=== PATIENT | female | born 1945 | race Caucasian/White ===

== ENCOUNTER 2024-01-08 13:22 | Outpatient (REF) | payer OTHER, SELFPAY ==
--- NOTE | ~2024-01-08 | XR_ITS ---
EXAMINATION: XR LUMBOSACRAL SPINE WITH OBLIQUES CLINICAL INFORMATION: Spondylolisthesis lumbar region. COMPARISON: None available. TECHNIQUE: 4 views of the lumbar spine including AP, lateral and flexion and extension views. FINDINGS: Dextroscoliosis of the lumbar spine. Radiopaque devices characteristic of a zipper and oval 3 cm device overlying the sacrum, seen only on the AP view, likely external to the patient and correlation with clinical exam recommended for confirmation. Status post posterior fixation with bilateral rods and transpedicular screws as well as disc hardware at L3-L4-L5 levels. Hardware appears intact. Advanced degenerative changes with loss of disc space height at L4-L5 and L5-S1. Substantial anterolisthesis of approximately 1 cm of L4 on L5 with flexion and extension. XR/XR lumbar spine 4V min IMPRESSION: 1. Status post posterior fixation with bilateral rods and transpedicular screws as well as disc hardware at L3-L4-L5 levels. Hardware appears intact. 2. Advanced degenerative changes with loss of disc space height at L4-L5 and L5-S1. 3. Substantial anterolisthesis of approximately 1 cm of L4 on L5 with flexion and extension.
== END 2024-01-08 13:23 | disposition home or self-care (01) ==
LOC: HO.HOSX 13:22
PROVIDERS: PCP Pediatrics; Visit Provider Physician Assistant
DX: M43.16 Spondylolisthesis, lumbar region (principal)
CPT/HCPCS: 72110

== ENCOUNTER 2024-01-08 13:22 | Outpatient (AMB) | payer OTHER, SELFPAY ==
--- NOTE | 2024-01-08 13:29 | HO.SPINEOV ---
Intake Intake Visit Reasons: lumbar radiculopathy Intake Note: Ms. Toro is here today c/o pain shooting down legs Tours Hostess Required: No Allergies acetaminophen [From Percocet] Allergy (Mild, Unverified 07/27/20 17:36) DIZZY oxycodone [From Percocet] Allergy (Mild, Unverified 07/27/20 17:36) DIZZY Assessment & Plan Assessment & Plan (1) Spondylolisthesis, lumbar region: Code(s): M43.16 - Spondylolisthesis, lumbar region Plan Mrs Toro is a very nice 78-year-old female who is well known to us. We have done a number of spinal procedures on her including an L2-4 oblique lumbar interbody fusion in 2019, a left L4-5 hemilaminotomy in 2021 for postoperative left leg pain. We also previously did bilateral C7 foraminotomies in 2018. She generally recovered well from all these procedures, however over the last year so she has been having a significant increase in her back pain as well as anterior thigh pain going down into her knees. The pain has been so bad that when she gets up in the morning she can barely walk. At 1st it started with some relief when she would get up and move around but it has gotten to the point now where the only position she can be in without pain is supine. As soon as she gets up in the morning and starts walking around she will have severe back pain radiating down into her anterior thighs bilaterally. She has feelings weakness and fatigue with walking. She at this point barely leaves her house because of the pain and discomfort. She is very frustrated with her quality of life. She underwent an MRI at [facility] in December of 2023 showing a severe collapse of the L4-5 disc with a grade 1-2 spondylolisthesis and severe stenosis in the foramen and central canal. Just to recap her medical history, she has a history of AFib remotely, she underwent an ablation and then subsequently underwent a Watchman procedure. She had been on Xarelto but due to significant GI bleeding had to discontinue it, hence the reason for the Watchman. She has diet-controlled diabetes with an A1c in the low 6 range, stage 3 chronic kidney disease, hypertension, high cholesterol, glaucoma, psoriatic arthritis esophageal reflux, colon polyp Social history: She does not smoke, drink or use recreational drugs Medications: The patient supplied a medication list today including metoprolol, enalapril, Lipitor, Prilosec, dorzolamide, timolol, reckless watkins, trazodone, aspirin, PreserVision Allergies: Percocet gives her nausea or vomiting. Physical exam: Patient is awake alert oriented here with her today she is able to stand up out of a chair albeit slowly. Her leg strength is 5/5 but a reflexes are absent at the patella. In a vertical position standing for more than just a few seconds, she will grimace with pain as she moves her back into a vertical position which would generate radiculopathy down her legs. Imaging: The patient had an MRI done at [facility] in December of 2023 and this shows evidence of previous hardware instrumentation from L2-L4 with good positioning of instrumentation. She has developed a grade 1-2 spondylolisthesis at L4-5 with severe bilateral foraminal stenosis and severe central canal stenosis. She has some mild to moderate degeneration of the disc at L5-S1 but no significant foraminal or central canal stenosis at these levels. I compared her imaging to that done at [place] in 2019 and I can see the disc has completely collapsed. There was no spondylolisthesis at that time. Impression: 78-year-old female well known to Dr. Alex, who underwent an L2-4 oblique lumbar interbody fusion in 2019, had subsequent procedure of a left L4-5 decompression done about 2 years ago for left-sided sciatica pain, who did well from those procedures until about a year ago when she started to develop progressively worsening back pain and bilateral anterior thigh pain going into her knees. As outlined above, she is completely collapsed the disc at L4-5 with a grade 1-2 spondylolisthesis consistent with adjacent segment disease. I will review her imaging with Dr. Alex but I think she is going to need an L4-5 oblique lumbar interbody fusion with revision of her posterior instrumentation down to L4-5. I will review all the imaging with him and get back to the patient with a final plan. I will also obtain flexion-extension x-rays in the standing position to exclude that she has occult instability at any other segments. The patient has been stable from a medical standpoint and is off Xarelto so there should be no issues with clearing her for surgery. Please let us know about any other health concerns you have moving forward with surgery. Thank you for allowing us to care for your patient Total amount of time spent in this visit was 30 minutes in discussion of symptoms, lumbar MRI imaging results and subsequent plan of care Hugh Alex MD,PhD [facility] Orders: Orders XR lumbar spine 4V min Today M43.16 - Spondylolisthesis, lumbar region Coding Level of Care Code Est Pt Level 4 (03258) Diagnoses Spondylolisthesis, lumbar region M43.16
== END 2024-01-08 14:00 | disposition home or self-care (01) ==
PROVIDERS: PCP Pediatrics; Referring Provider Pediatrics; Visit Provider Physician Assistant
DX: M43.16 Spondylolisthesis, lumbar region (principal)
CPT/HCPCS: 99214

== ENCOUNTER → 2024-01-21 12:30 | Outpatient (BNV) | payer OTHER, SELFPAY | PROVIDERS: Admitting Provider Neurological Surgery; PCP Pediatrics; Visit Provider Internal Medicine Cardiovascular Disease | DX: I48.91 Unspecified atrial fibrillation (principal); Z01.810 Encounter for preprocedural cardiovascular examination | CPT/HCPCS: 93010 ==

== ENCOUNTER 2024-02-02 05:56 | Inpatient (IN) | payer OTHER, SELFPAY ==
[2024-01-21 12:01] VITALS: BP 141/71; PULSE 73; RESP 16; O2SAT 97; BMI 33.7
--- NOTE | 2024-01-21 12:24 | HO.ANESPROP2 ---
Documented by User: Chiara Celis MD 01/21/24 12:35 HPI - Anesthesia Eval Consult details Narrative: 78 yo female patient for L4-5 OLIF and revision of posterior instrumentation extending hardware to L4-5 PMFSH Active Problems Active Problems: All Active Problems (Updated 01/21/24 @ 12:23 by Chiraa Celis MD) Spondylolisthesis, lumbar region (Acute) H/o GI bleed needing admission while on anti-coagulants. Now with Watchman device placed 2021 Past Medical History Medical History Deafness in right ear Presence of Watchman left atrial appendage closure device (2021) Hx of blood transfusion reaction (~2020) Carsickness PONV (postoperative nausea and vomiting) Restless leg syndrome Presence of Watchman left atrial appendage closure device Obese Low back pain with right-sided sciatica Insomnia History of GI bleed Hx of colonic polyp Cervical radiculopathy Atrial flutter Atrial fibrillation Family History Family history of problems with anesthesia: No Surgical History Surgical History Hx of cataract surgery History of cardiac radiofrequency ablation (RFA) S/P cervical spinal fusion History of trabeculectomy H/O lumbar discectomy Hx of colonoscopy History of Problems with Anesthesia: No Social History Social History 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 If so, by whom?: No Are you DNR?: No Advance Directives: No Advance Directives Information Provided: Yes Advance Directives on File: No Recently lost weight without trying: No Nutrition Risks: No Nutritional Risk Meds Allergies Allergy/AdvReac Type Severity Reaction Status Date / Time oxycodone [From Percocet] Allergy Intermediate DIZZY, Verified 02/02/24 06:20 nausea Home Medications Medication Instructions Recorded Confirmed Last Taken Type aspirin 81 mg tablet,delayed 81 mg PO DAILY 01/08/24 01/20/24 01/30/24 History release atorvastatin 20 mg tablet (Lipitor) 20 mg PO BEDTIME 01/08/24 01/20/24 Unknown History enalapril maleate 5 mg tablet 5 mg PO DAILY 01/08/24 01/20/24 Unknown History metoprolol succinate 50 mg 50 mg PO DAILY 01/08/24 01/20/24 02/02/24 04:30 History tablet,extended release 24 hr trazodone 50 mg tablet 50 mg PO BEDTIME 01/08/24 01/20/24 Unknown History dorzolamide 22.3 mg-timolol 6.8 1 drp ophthalmic (eye) BID 01/20/24 01/20/24 Unknown History mg/mL eye drops netarsudil 0.02 %-latanoprost 1 drp ophthalmic (eye) QPM 01/20/24 01/20/24 Unknown History 0.005 % eye drops ([facility]) vit C 250 mg-vit E 90 mg-zinc 40 1 tab PO BID 01/20/24 01/20/24 Unknown History mg-copper 1 [id number] capsule (PreserVision AREDS-2) omeprazole 40 mg capsule,delayed 40 mg PO DAILY 01/21/24 01/21/24 Unknown History release Exam Height,Weight and Vital Signs: Height 5 ft 2 in Weight 83.461 kg Last Vital Signs Pulse 73 01/21/24 12:01 Resp 16 01/21/24 12:01 BP 141/71 H 01/21/24 12:01 Pulse Ox 97 01/21/24 12:01 O2 Del Method Room Air 01/21/24 12:01 Airway Mallampati Class: II TM Dist: >3cm Neck ROM: Full Denture: Upper Loose/Missing/Broken Teeth: Yes (Full dentures top. Own teeth bottom. Denies broken or loose teeth) Heart: RRR Lungs: CTAB Assessment and Plan Assessment Anesthesia Assessment: Anesthesia Plan Discussed, PAT Visit and Chart Reviewed Final Anesthetic Review Family History of Problems with Anesthesia: No History of Problems with Anesthesia: No ASA Class: III Final Preanesthetic Review: No Changes in Pt Med Stat, Meds/Allgs Chart Reviewed, Consent Obtained/Reviewed and Anes Risks/Benef Reviewed Patient Risk: Intermediate Procedure Risk: Intermediate Assessment/Block/Sedation in SS: Assess/Block/Sedation-SS Anesthetic Plan Anesthetic Plan: GA Disposition: Standard PACU Documented by User: Pauline Skelton NP 01/29/24 14:14 PMFSH Past Medical History Medical History Deafness in right ear Presence of Watchman left atrial appendage closure device (2021) Hx of blood transfusion reaction (~2020) Carsickness PONV (postoperative nausea and vomiting) Restless leg syndrome Presence of Watchman left atrial appendage closure device Obese Low back pain with right-sided sciatica Insomnia History of GI bleed Hx of colonic polyp Cervical radiculopathy Atrial flutter Atrial fibrillation Surgical History Surgical History Hx of cataract surgery History of cardiac radiofrequency ablation (RFA) S/P cervical spinal fusion History of trabeculectomy H/O lumbar discectomy Hx of colonoscopy Social History Social History 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 If so, by whom?: No Are you DNR?: No Advance Directives: No Advance Directives Information Provided: Yes Advance Directives on File: No Recently lost weight without trying: No Nutrition Risks: No Nutritional Risk Meds Allergies Allergy/AdvReac Type Severity Reaction Status Date / Time oxycodone [From Percocet] Allergy Intermediate DIZZY, Verified 02/02/24 06:20 nausea Home Medications Medication Instructions Recorded Confirmed Last Taken Type aspirin 81 mg tablet,delayed 81 mg PO DAILY 01/08/24 01/20/24 01/30/24 History release atorvastatin 20 mg tablet (Lipitor) 20 mg PO BEDTIME 01/08/24 01/20/24 Unknown History enalapril maleate 5 mg tablet 5 mg PO DAILY 01/08/24 01/20/24 Unknown History metoprolol succinate 50 mg 50 mg PO DAILY 01/08/24 01/20/24 02/02/24 04:30 History tablet,extended release 24 hr trazodone 50 mg tablet 50 mg PO BEDTIME 01/08/24 01/20/24 Unknown History dorzolamide 22.3 mg-timolol 6.8 1 drp ophthalmic (eye) BID 01/20/24 01/20/24 Unknown History mg/mL eye drops netarsudil 0.02 %-latanoprost 1 drp ophthalmic (eye) QPM 01/20/24 01/20/24 Unknown History 0.005 % eye drops ([facility]) vit C 250 mg-vit E 90 mg-zinc 40 1 tab PO BID 01/20/24 01/20/24 Unknown History mg-copper 1 [id number] capsule (PreserVision AREDS-2) omeprazole 40 mg capsule,delayed 40 mg PO DAILY 01/21/24 01/21/24 Unknown History release Exam Pertinent Lab Results Pertinent Lab Results: Lab Results 01/21/24 01/21/24 Range/Units 12:45 12:55 WBC 7.1 (4.8-10.8) X10*3/uL RBC 4.21 (4.20-5.50) X10*6/uL Hgb 12.7 (12.0-16.0) g/dl Hct 38.7 (37.0-47.0) % MCV 91.9 (80.0-98.0) fL MCH 30.2 (27.0-33.0) pg MCHC 32.8 (31.0-35.0) g/dl RDW 12.9 (11.0-16.0) % Plt Count 233 (160-400) X10*3/uL MPV 10.1 (9.4-12.3) fL Absolute Nucleated RBC 0.000 (0.0-0.012) X10*3/uL Nucleated RBC % (auto) 0.0 (0.0-0.2) /100WBC Blood Type O Positive Antibody Screen NEGATIVE Narrative Narrative: EKG 01/2024 Vent. Rate : 078 BPM Atrial Rate : 078 BPM P-R Int : 170 ms QRS Dur : 086 ms QT Int : 384 ms P-R-T Axes : 072 047 035 degrees QTc Int : 437 ms Normal sinus rhythm Normal ECG No previous ECGs available
--- NOTE | 2024-01-21 12:30 | ECG_ITS ---
Test Reason : PREOP Blood Pressure : / mmHG Vent. Rate : 078 BPM Atrial Rate : 078 BPM P-R Int : 170 ms QRS Dur : 086 ms QT Int : 384 ms P-R-T Axes : 072 047 035 degrees QTc Int : 437 ms Normal sinus rhythm Normal ECG No previous ECGs available Referred By: Chiara Celis Electronically Signed By:MARCIE OLIVA MD
[2024-01-21 14:03] LABS: Hematocrit 38.7 % (37.0-47.0); Hemoglobin 12.7 g/dl (12.0-16.0); Mean Corpuscular HGB Conc 32.8 g/dl (31.0-35.0); Mean Corpuscular Hemoglobin 30.2 pg (27.0-33.0); Mean Corpuscular Volume 91.9 fL (80.0-98.0); Mean Platelet Volume 10.1 fL (9.4-12.3); Platelet Count 233 X10*3/uL (160-400); Red Blood Count 4.21 X10*6/uL (4.20-5.50); Red Cell Distribution Width 12.9 % (11.0-16.0); White Blood Count 7.1 X10*3/uL (4.8-10.8)
[2024-02-02] VITALS (22 sets, daily range): BP systolic 109–143; BP diastolic 50–87; PULSE 55–73; RESP 12–18; TEMP 36.2–36.6; O2SAT 97–100; BMI 34.1
--- NOTE | ~2024-02-02 | FL_ITS ---
EXAMINATION: XR FLUOROSCOPY WITH IMAGES CLINICAL INFORMATION: Fluoroscopy provided for procedure for L4-L5 oblique lumbar interbody fusion supervised by Dr. Esau Alex. COMPARISON: Lumbar spine radiographs of 01/08/2024. TECHNIQUE: Fluoroscopy Supervised By: Dr. Esau Alex Fluoroscopy Time: 1 minute 49 seconds. Cumulative Dose: 66.702 mGy. DAP: 23.424 Gycm2. Images: 4. FINDINGS: Fluoroscopic imaging provided for procedure supervised by Dr. Esau Alex. Lumbar rods and transpedicular screws with disc spacers partially imaged. Please refer to operative report for more detailed evaluation. FL/FL guidance in OR IMPRESSION: Fluoroscopic imaging provided for procedure performed. Please refer to operative report for more detailed evaluation.
[2024-02-02] MEDS: Gabapentin 300 MG CAPSULE PO (06:26)
[2024-02-02] MEDS: Scopolamine 1.5 MG PATCH.TD.3 TRANSDERMA (06:26)
[2024-02-02] MEDS: methocarbamoL 750 MG TABLET PO (06:26)
[2024-02-02] MEDS: Lactated Ringers 1,000 ML 100 ML IVCONT (06:41)
--- NOTE | 2024-02-02 07:01 | MHC.SHP ---
Pre-Procedural Eval Section A - 24 Hr Update-Section A only Date of Service: 02/02/24 The patient is an INPATIENT: No Changes since office visit: No Cold of Flu in the past 2 weeks, No New Medical Problems, No Changes in Medication and No Patient answered all questions The patient has been examined within 24 hours of the surgical procedure. The History & Physical has been completed within 30 days and I have reviewed it.: No Section B - Complete if H&P > 30 days Chief Complaint: L4-5 OLIF Allergies: Allergies Allergy/AdvReac Type Severity Reaction Status Date / Time oxycodone [From Percocet] Allergy Intermediate DIZZY, Verified 02/02/24 06:20 nausea Review of Systems Sugical H&P ROS: Negative: Constitution, Cardiovascular, Respiratory, Neurological, Psychiatric, Hem-Onc, Allergic/Immunologic, Gastrointestinal, Genitourinary, Musculoskeletal, Integumentary, Endocrine and Eyes/Ears/Nose/Throat Exam Surgical H&P Exam: Not Evaluated: HEENT, Not Evaluated: Heart, Not Evaluated: Lungs, Not Evaluated: Extremities, Not Evaluated: Abdomen, Not Evaluated: Skin and Not Evaluated: Neurological Plan Diagnosis/Plan: Unchanged L4-5 OLIF, removal of old posterior instrumentation, placement of pedicle screws L4-5 Time Spent With Patient Time: Total time managing care of this patient today ___6_ minutes.
--- NOTE | 2024-02-02 10:24 | P.OP_ITS ---
Operative Note Operative Note Date of Service: 02/02/24 Narrative: Preop Diagnosis: 1.) L4-5 lumbar spondylolisthesis 2.) Neurogenic claudication Procedure: L4-5 discectomy, arthrodesis and implantation cage through an anterolateral, retroperitoneal approach; removal L2-L4 posterior segmental instrumentation; insertion L4-5 posterior instrumented fusion; allograft Consent Informed Consent was obtained for this operation. I have explained the nature, purpose and benefits of the operation. I have discussed the risks and benefit of the operation including possible complications or adverse events with patient/family. Alternative(s) were discussed with the patient with their relat seven benefits and risks as well as the consequences of not accepting the operation were included in obtaining consent. Surgeon: GHADA MARIE MD, PHD Procedure Assisted By: martha Cedeno Description of Procedure This 78-year-old patient had a previous L2-L4 lumbar fusion done. She presented with adjacent degenerative disc disease that caused a grade 2 L4-5 spondylolisthesis. She was offered a minimally invasive correction of the lumbar spondylolisthesis through an oblique lumbar interbody fusion L4-5 and revision and insertion of posterior instrumentation. The procedure complications were explained. The patient was consented. The patient was brought to the operating room and endotracheally intubated. The patient was turned in a lateral position with the left side up. Prep and drape was done followed by timeout. A small incision was made in the left lower abdominal quadrant. The muscle fascia was opened after which the 3 muscle layer was split to enter the retroperitoneal space. Dilators were docked in the anterior one third of the L4-5 disc space followed by a retractor. The retractor was opened. The L4-5 disc space was exposed. An annulotomy was done after which an elevator Lim was used to release the disc material from its endplates and to perforate the contralateral side. A partial discectomy was done. An 8 mm height trial implant was inserted. The discectomy was completed. The endplates were prepared. An 8 mm x 50 mm with 0 degree lordosis 4 web cage filled with allograft was inserted into the disc space under fluoroscopic guidance. This resulted in reduction of the spondylolisthesis. The retractor was removed. Hemostasis was done. The incision was closed in 2 layers. Steri-Strips used to approximate incision. An OpSite with Tegaderm was used to cover the incision. This marked first part of the procedure. The patient was turned prone on the [place] spine table. 2C arms were installed for fluoroscopy. Prep and drape was done followed by a second timeout. 2 paramedian incisions were made lateral from the L2-L5 pedicles. The muscle fascia was opened after which the muscle layer was split bluntly to expose previous placed L2-L4 instrumentation. The locking caps were removed and the bilateral rods were taken out. The L2 and L3 pedicle screws were removed bilaterally. The L4 screws were left insitu. The following steps were then taken. A pediguard tap was used to create a transpedicular trajectory into the L5 vertebral body. A K wire was placed. A specially designed instrument was advanced over the K wire to decorticate the posterolateral L4-5 gutter in preparation for the posterolateral fusion. A 6.5 x 45 mm pedicle screw was advanced over the K wire bilaterally in the L5 pedicles followed by removal of the K wire. The L4 and L5 pedicle screws were connected with a 45 mm yarely bilaterally and locked down with locking caps. The posterolateral gutter was filled with allograft to complete the posterolateral L4-5 fusion Hemostasis was done and the incision was closed in 2 layers. Steri-Strips were used to approximate the incision. An OpSite were taken and was used to cover the incision. All sponge and needle counts were correct. Patient was extubated and transferred in stable is to recovery room. The procedure was done with the aid of a physician production administrative assistant who unilaterally removed the posterior hardware and closed the paramedian incisions in 2 layers. Anesthesia: General Estimated Blood Loss (ml): 50 mL Duration of Surgery: 2 hours 30 minutes Complications: None Postoperative Plan: Admit to inpatient for observation
[2024-02-02] MEDS: fentaNYL citrate/PF 100 MCG/2 ML VIAL 25 MCG IVPUSH (11:25)
[2024-02-02] MEDS: ceFAZolin Sodium/Dextrose,Iso 2 GM/50 ML PIGGYBACK IV ×2 (14:20→19:29)
[2024-02-02] MEDS: Acetaminophen 1,000 MG/100 ML PIGGYBACK 400 MG IV ×2 (14:53→20:13)
[2024-02-02] MEDS: Ketorolac Tromethamine 15 MG/ML VIAL IVPUSH ×2 (16:04→21:59)
[2024-02-02] MEDS: 0.9 % Sodium Chloride 1,000 ML 75 ML IVCONT (16:05)
--- NOTE | 2024-02-02 16:13 | PHA.MEDREC ---
Pharmacy Consult ? Medication Reconciliation Pharmacy has reviewed the medication reconciliation completed by nursing.
[2024-02-02] MEDS: traZODone HCL 50 MG TABLET PO (20:11)
[2024-02-02] MEDS: Atorvastatin Calcium 20 MG TABLET PO (20:11)
[2024-02-02] MEDS: Docusate Sodium 100 MG CAPSULE PO (20:11)
[2024-02-02] MEDS: Dorzolamide/Timolo 2.23%/0.68% 10 ML DRBTL 1 DROP EYE-BOTH (21:57)
[2024-02-03] MEDS: traZODone HCL 50 MG TABLET PO (00:42)
[2024-02-03] MEDS: HYDROmorphone HCl 2 MG TABLET PO (00:43)
[2024-02-03] MEDS: ceFAZolin Sodium/Dextrose,Iso 2 GM/50 ML PIGGYBACK IV (02:30)
[2024-02-03] MEDS: Acetaminophen 1,000 MG/100 ML PIGGYBACK 400 MG IV ×2 (03:08→08:18)
[2024-02-03 03:30] VITALS: BP 96/50; PULSE 84; RESP 18; TEMP 36.4; O2SAT 97
[2024-02-03] MEDS: Ketorolac Tromethamine 15 MG/ML VIAL IVPUSH ×2 (04:01→08:18)
[2024-02-03] MEDS: Omeprazole 40 MG CAPSULE.DR PO (05:59)
[2024-02-03] MEDS: 0.9 % Sodium Chloride 1,000 ML 75 ML IVCONT (06:04)
[2024-02-03 07:32] VITALS: BP 121/59; PULSE 75; RESP 18; TEMP 36.3; O2SAT 96
--- NOTE | 2024-02-03 07:49 | HO.NEURO.PN ---
Neurosurgery Operative Note Date of Service: 02/03/24 Narrative: Postop day 1. L4-5 oblique lumbar interbody fusion Patient reports he the she has some pain down the right side of her posterolateral thigh, but otherwise is doing okay. No weakness numbness etc.. She has been up walking around with a walker. She has tolerating a diet in 8 of full meal last night. She has been voiding without any issues,. She has some back discomfort but otherwise seems manageable with the medications. Afebrile, vital signs stable Physical exam: Patient is awake alert oriented x3 no acute distress she is sitting on the edge of the bed able to stand up independently on her own, strength is full. Abdomen is soft nondistended nontender, no rebound tenderness or guarding, left lower quadrant incision is clean and dry small amount of staining but no signs of hematoma. Back dressings are clean and dry with no signs of hematoma. Impression: Postop day 1. L4-5 oblique lumbar interbody fusion, patient clinically doing well, she has been up moving around tolerating a diet and voiding well. She does have some pain down the right posterolateral thigh but it is not disabling, it is not causing her to be unable to walk. Her strength and sensation are normal. We think this could just be some irritation of the nerve or just some referred pain secondary to correction of scoliosis. She is going to work with physical therapy but we anticipate she can go home today. Patient seen at bedside with Dr. Alex.
--- NOTE | 2024-02-03 07:52 | PM.DS ---
DS: Providers Provider Date of Service: 02/02/24 Date of admission: 02/02/24 05:56 Date of discharge: 02/03/24 Primary care physician: Elsa Buck MD Admitting clinician: Esau Alex DS: Diagnosis Discharge Diagnosis (1) Spondylolisthesis, lumbar region: Status: Acute DS: Summary Time Attestation Discharge Coordination Time (in mins): 5 Quality: Safe Use of Opioids Does Pt have an Active Cancer Diagnosis on the Problem List?: No Quality: Stroke Does the patient have a stroke diagnosis?: No Physical Exam Vital Signs: Vital Signs: Last Vital Signs Temp 97.4 F 02/03/24 07:32 Pulse 75 02/03/24 07:32 Resp 18 02/03/24 07:32 BP 121/59 L 02/03/24 07:32 Pulse Ox 96 02/03/24 07:32 O2 Del Method Room Air 02/03/24 07:32 O2 Flow Rate 2 02/02/24 15:25 BMI result Body Mass Index 34.1 Discharge Plan Discharge Anticipated Discharge Date/Time: 02/03/24 13:53 Patient Disposition: Home, Self-Care Discharge Diagnosis: Lumbar spondylolisthesis L4-5 Referrals: Elsa Buck MD [Primary Care Provider] - 1 Week Discharge Medications: New docusate sodium [Colace] 100 mg capsule 100 mg PO BID Qty: 20 0RF hydromorphone [Dilaudid] 2 mg tablet 2 mg PO Q4H PRN (Reason: pain) Qty: 30 0RF Rx Instructions: Partial Fill upon patient request. Continued dorzolamide-timolol 22.3-6.8 mg/mL drops 1 drp ophthalmic (eye) BID PreserVision AREDS-2 250-90-40-1 mg Capsule 1 tab PO BID Rocklatan 0.02-0.005 % drops 1 drp ophthalmic (eye) QPM omeprazole 40 mg capsule,delayed release(DR/EC) 40 mg PO DAILY metoprolol succinate 50 mg tablet extended release 24 hr 50 mg PO DAILY enalapril maleate 5 mg tablet 5 mg PO DAILY atorvastatin [Lipitor] 20 mg tablet 20 mg PO BEDTIME trazodone 50 mg tablet 50 mg PO BEDTIME aspirin 81 mg tablet,delayed release (DR/EC) 81 mg PO DAILY Discharge Orders: Discharge Order (Routine); Ordered 02/03/24 Ordered By: Hugh Ken Diet: Advance to usual diet Activity on Discharge: As tolerated Stand Alone Forms: Patient Portal Discharge page Activity Restrictions/Additional Instructions: After your spinal surgery we ask you to observe the following restrictions/guidelines: Activity: It is normal to feel some discomfort as you increase your activity, but that will improve with time. We ask you avoid heavy lifting or acitivities that cause pain. As a general rule, 8lbs is a safe limit for lifting right after surgery. Walk as much as you feel comfortable but not to exhaustion. You will feel extra tired the first few days after surgery. Stay well hydrated. It is OK to walk up and down stairs You may return to driving when you are off narcotics (such as vicodin, oxycodone, dilaudid, etc), and you are back to normal functional capacity. If you have any concerns please check with office before driving. Return to work is specific to each patient and each surgery, so please speak with your doctor/PA at first follow up. Please bring paperwork such as FMLA at that time if you need it filled out. Medications: For optimum pain control, it is best to start with a combination of 500 mg of Tylenol every 4 hours with 600 mg of Motrin every 8 hours, and use narcotics as needed in between for breakthrough pain. We will give you a short supply of narcotics after surgery (usually one weeks worth). If you need more please call the office but do not use more than prescribed. You will need to give our office 48 hours notice if you need narcotics refilled and we do not fill narcotics on weekends or evenings. If you are on a narcotic, it is a good idea to take a stool softener such as colace or senna to avoid constipation If you take blood thinner such as aspirin, Plavix, Coumadin, Effient, Eliquis etc for conditions such as Afib, DVT, Pulmonary embolus, coronary disease, stents etc please speak with your surgeon about specific details as to when you can resume these medications. You can resume NSAIDs on post op day 1 (eg: Motrin, Naproxen, etc). Follow up: Please call the office, , after surgery to arrange a 3 week follow up for wound check. Wound Care: You may remove your dressing on the first day after surgery. ?You may ?leave open to air. Please do not remove the steri strips underneath. they will fall off on their own in one week. IT IS NORMAL FOR THE WOUND TO OOZE OR BE BLOODY FOR A FEW DAYS AFTER SURGERY. ?IF THIS HAPPENS JUST PLACE NEW DRESSING OVER IT TO AVOID STAINING CLOTHES. You may shower on post op day # 1 We ask that you do not let the water soak the wound. If it does get wet, just towel dry lightly. Please do not scrub your incision or place any type of chemical/ointment on the wound. No tub baths, pools or jacuzzis for one month. If you have any leaking or redness from your wound, or fevers, please call office Care Plan Goals: Discharge home Health Concerns: None Plan of Treatment: Discharge home Assessment: None
[2024-02-03] MEDS: Multivitamin TABLET 1 TAB PO (08:18)
[2024-02-03] MEDS: Aspirin Enteric Coated 81 MG TABLET.DR PO (08:18)
[2024-02-03] MEDS: Metoprolol Succinate ER 50 MG TAB.ER.24H PO (08:18)
[2024-02-03] MEDS: Docusate Sodium 100 MG CAPSULE PO (08:18)
[2024-02-03] MEDS: Dorzolamide/Timolo 2.23%/0.68% 10 ML DRBTL 1 DROP EYE-BOTH (08:23)
[2024-02-03 09:05] VITALS: BP 121/59; PULSE 75; O2SAT 96
--- NOTE | 2024-02-03 09:27 | MHC.CM.PN ---
Addendum entered by Anyi Salazar RN 02/03/24 10:29: CM RETURNED TO PT'S ROOM AT 10:20AM TO CPOMPLETE HCP AND PT HAD ALREADY DISCHARGED. Addendum entered by Anyi Salazar RN 02/03/24 09:32: ANTIC PT WILL DC HOME SELF CARE TODAY, NO HOME SERVICES RECOMMENDED Original Note: 02/03/24, EMR REVIEWED, PT ADMITTED S/P L4-5 OLIF, PT REPORTS SHE LIVES W/, IS FULLY INDEP W/CARE AT BASELINE, HAS A ROLLATER WALKER AT HOME AND NO HOMOE SERVICES, THRIVE NEG, PT'S GOAL FOR DC IS HOME. PT VERIFIES PCP ON FILE IS CORRECT, FULLY COVID VAXED AND WOULD LIKE TO COMPLETE A HCP PRIOR TO DC, CM TO COMPLETE A HCP PRIOR TO DC AND IS WAITING FOR TO BRING IN HER PURSE W/CONTACT INFO.
--- NOTE | 2024-02-03 10:09 | PM.DS ---
DS: Providers Provider Date of Service: 02/03/24 Date of admission: 02/02/24 05:56 Primary care physician: Elsa Buck MD DS: Diagnosis Discharge Diagnosis (1) Spondylolisthesis, lumbar region: Status: Acute DS: Summary Time Attestation Discharge Coordination Time (in mins): 7 Quality: Safe Use of Opioids Does Pt have an Active Cancer Diagnosis on the Problem List?: No Quality: Stroke Does the patient have a stroke diagnosis?: No Physical Exam Vital Signs: Vital Signs: Last Vital Signs Temp 97.4 F 02/03/24 07:32 Pulse 75 02/03/24 09:05 Resp 18 02/03/24 07:32 BP 121/59 L 02/03/24 09:05 Pulse Ox 96 02/03/24 09:05 O2 Del Method Room Air 02/03/24 07:32 O2 Flow Rate 2 02/02/24 15:25 BMI result Body Mass Index 34.1 Discharge Plan Discharge Anticipated Discharge Date/Time: 02/03/24 13:53 Patient Disposition: Home, Self-Care Discharge Diagnosis: Lumbar spondylolisthesis L4-5 Referrals: Elsa Buck MD [Primary Care Provider] - 1 Week Discharge Medications: New docusate sodium [Colace] 100 mg capsule 100 mg PO BID Qty: 20 0RF hydromorphone [Dilaudid] 2 mg tablet 2 mg PO Q4H PRN (Reason: pain) Qty: 30 0RF Rx Instructions: Partial Fill upon patient request. Continued dorzolamide-timolol 22.3-6.8 mg/mL drops 1 drp ophthalmic (eye) BID PreserVision AREDS-2 250-90-40-1 mg Capsule 1 tab PO BID Rocklatan 0.02-0.005 % drops 1 drp ophthalmic (eye) QPM omeprazole 40 mg capsule,delayed release(DR/EC) 40 mg PO DAILY metoprolol succinate 50 mg tablet extended release 24 hr 50 mg PO DAILY enalapril maleate 5 mg tablet 5 mg PO DAILY atorvastatin [Lipitor] 20 mg tablet 20 mg PO BEDTIME trazodone 50 mg tablet 50 mg PO BEDTIME aspirin 81 mg tablet,delayed release (DR/EC) 81 mg PO DAILY Discharge Orders: Discharge Order (Routine); Ordered 02/03/24 Ordered By: Hugh Ken Diet: Advance to usual diet Activity on Discharge: As tolerated Stand Alone Forms: Patient Portal Discharge page Activity Restrictions/Additional Instructions: After your spinal surgery we ask you to observe the following restrictions/guidelines: Activity: It is normal to feel some discomfort as you increase your activity, but that will improve with time. We ask you avoid heavy lifting or acitivities that cause pain. As a general rule, 8lbs is a safe limit for lifting right after surgery. Walk as much as you feel comfortable but not to exhaustion. You will feel extra tired the first few days after surgery. Stay well hydrated. It is OK to walk up and down stairs You may return to driving when you are off narcotics (such as vicodin, oxycodone, dilaudid, etc), and you are back to normal functional capacity. If you have any concerns please check with office before driving. Return to work is specific to each patient and each surgery, so please speak with your doctor/PA at first follow up. Please bring paperwork such as FMLA at that time if you need it filled out. Medications: For optimum pain control, it is best to start with a combination of 500 mg of Tylenol every 4 hours with 600 mg of Motrin every 8 hours, and use narcotics as needed in between for breakthrough pain. We will give you a short supply of narcotics after surgery (usually one weeks worth). If you need more please call the office but do not use more than prescribed. You will need to give our office 48 hours notice if you need narcotics refilled and we do not fill narcotics on weekends or evenings. If you are on a narcotic, it is a good idea to take a stool softener such as colace or senna to avoid constipation If you take blood thinner such as aspirin, Plavix, Coumadin, Effient, Eliquis etc for conditions such as Afib, DVT, Pulmonary embolus, coronary disease, stents etc please speak with your surgeon about specific details as to when you can resume these medications. You can resume NSAIDs on post op day 1 (eg: Motrin, Naproxen, etc). Follow up: Please call the office, , after surgery to arrange a 3 week follow up for wound check. Wound Care: You may remove your dressing on the first day after surgery. ?You may ?leave open to air. Please do not remove the steri strips underneath. they will fall off on their own in one week. IT IS NORMAL FOR THE WOUND TO OOZE OR BE BLOODY FOR A FEW DAYS AFTER SURGERY. ?IF THIS HAPPENS JUST PLACE NEW DRESSING OVER IT TO AVOID STAINING CLOTHES. You may shower on post op day # 1 We ask that you do not let the water soak the wound. If it does get wet, just towel dry lightly. Please do not scrub your incision or place any type of chemical/ointment on the wound. No tub baths, pools or jacuzzis for one month. If you have any leaking or redness from your wound, or fevers, please call office Care Plan Goals: Discharge home Health Concerns: None Plan of Treatment: Discharge home Assessment: None
--- NOTE | 2024-02-03 12:58 | HO.POSTANES ---
Post Anesthesia Evaluation Post Anesthesia Evaluation Date of Service: 02/03/24 Vital Signs: Vital Signs Temp Pulse Resp BP Pulse Ox O2 Del Method 02/03/24 09:05 75 121/59 L 96 02/03/24 07:32 97.4 F 75 18 121/59 L 96 Room Air 02/03/24 03:30 97.5 F 84 18 96/50 L 97 Room Air Anesthesia: General Endotracheal-GETA Mental Status: Awake Pain Control: Satisfactory Nausea/Vomiting: None Hydration: Adequate Anesthesia-Related Issues: No Anes. Related Issues
== END 2024-02-03 10:13 | disposition home or self-care (01) | DRG 460 ==
LOC: HO.SSSA 06:00 → HO.S3 15:10
PROVIDERS: Anesthesiology; Admitting Provider Neurological Surgery; PCP Pediatrics; Visit Provider Neurological Surgery
PROC: 0SG00A0 Fusion of Lumbar Vertebral Joint with Interbody Fusion Device, Anterior Approach, Anterior Column, Open Approach (ICD-10-PCS; CPT 22612; principal; 2024-02-02 07:30)
DX: M48.062 Spinal stenosis, lumbar region with neurogenic claudication (principal); M43.16 Spondylolisthesis, lumbar region; Z95.818 Presence of other cardiac implants and grafts; Z79.82 Long term (current) use of aspirin; Z79.899 Other long term (current) drug therapy
CPT/HCPCS: 22612; 22558; 22840; 22853; 20930; 36415; 85027; 86850; 86900; 86901; 93005; 97116; 97161; 97530; C1713; C9290; J0131; J0665; J0690; J1100; J1885; J2371; J2405; J2704; J3010; L8699

== ENCOUNTER → 2024-02-02 05:56 | Outpatient (BNV) | payer OTHER, SELFPAY | PROVIDERS: Admitting Provider Neurological Surgery; PCP Pediatrics; Visit Provider Neurological Surgery | DX: M43.16 Spondylolisthesis, lumbar region (principal); Z48.89 Encounter for other specified surgical aftercare | CPT/HCPCS: 20930; 22558; 22612; 22840; 22853; 99024; 99499 ==

== ENCOUNTER 2024-02-24 13:14 | Outpatient (AMB) | payer OTHER, SELFPAY ==
--- NOTE | 2024-02-24 13:16 | A.SPINEOV_ITS ---
Intake Intake Visit Reasons: 1st post op Intake Note: Ms. Toro is here today for 1st Post-op Psychiatric Orderly Required: No Allergies oxycodone [From Percocet] Allergy (Intermediate, Verified 02/24/24 13:20) DIZZY, nausea Do you need a note to return to daycare/school/sports/work: No Assessment & Plan Assessment & Plan (1) Spondylolisthesis, lumbar region: Code(s): M43.16 - Spondylolisthesis, lumbar region Plan Procedure: L4-5 OLIF Denice comes in today for her 1st postoperative visit. She reports she is very satisfied with the surgery and feels much better than she did pre-operatively. She has only been utilizing gabapentin for pain control/inflammation relief. She states this gives her good relief of her symptoms. Unfortunately she does still have quite a bit of restlessness before bed, but feels this too is improving. She is able to ambulate around her home well, is completing all of her ADLs, and is doing stairs without issue. No new neurological deficits. Patient is able to ambulate well, rises from a seated position without difficulty. Incision sites are closed, well healing, with no signs of drainage. I refilled Denice's gabapentin per her request. We will follow-up with the patient in 6 weeks for her 2nd postoperative visit. At that time we will get x- rays to review with the patient. Olu Alex MD,PhD [facility] Medications: Refilled gabapentin 300 mg PO TID 30 caps 0RF nerve pain Coding Level of Care Code Global (31653) Diagnoses Spondylolisthesis, lumbar region M43.16
== END 2024-02-24 13:34 | disposition home or self-care (01) ==
PROVIDERS: PCP Pediatrics; Visit Provider Physician Assistant
DX: M43.16 Spondylolisthesis, lumbar region (principal)
CPT/HCPCS: 99024

== ENCOUNTER → 2024-02-24 13:14 | Outpatient (BNVA) | payer OTHER, SELFPAY | PROVIDERS: PCP Pediatrics; Visit Provider Physician Assistant | DX: Z48.89 Encounter for other specified surgical aftercare (principal); M43.16 Spondylolisthesis, lumbar region; Z98.890 Other specified postprocedural states | CPT/HCPCS: 99212 ==

== ENCOUNTER 2024-04-06 12:23 | Outpatient (REF) | payer OTHER, SELFPAY ==
--- NOTE | ~2024-04-06 | XR_ITS ---
EXAMINATION: XR LUMBOSACRAL SPINE WITH OBLIQUES CLINICAL INFORMATION: Spondylolisthesis lumbar region. COMPARISON: Fluoroscopy images 02/02/2024. X-ray lumbar spine 01/08/2024. TECHNIQUE: 4 views of the lumbar spine. FINDINGS: Dextroscoliosis of the lumbar spine. Disc hardware present at L2-L3, L3-L4, and L4-L5. Posterior fixation with bilateral rods and pedicular screws spanning L4-L5. Hardware appears intact. Limited visualization of L5-S1 due to overlying bony structures. XR/XR lumbar spine 4V min IMPRESSION: 1. Posterior fixation with bilateral rods and pedicular screws spanning L4-L5. Hardware appears intact. 2. Limited visualization of L5-S1 due to overlying bony structures.
== END 2024-04-06 12:24 | disposition home or self-care (01) ==
LOC: HO.HOSX 12:23
PROVIDERS: Visit Provider Physician Assistant
DX: M43.16 Spondylolisthesis, lumbar region (principal); Z47.89 Encounter for other orthopedic aftercare; Z98.1 Arthrodesis status
CPT/HCPCS: 72110; 99212

== ENCOUNTER 2024-04-06 13:26 | Outpatient (AMB) | payer OTHER, SELFPAY ==
--- NOTE | 2024-04-06 13:52 | A.SPINEOV_ITS ---
Intake Visit Reasons: 6 week post op w/ Xrays Intake Note: Ms. Troo is here today for a 6week post-op appointment with xrays. Developmental Training Counselor Required: No Allergies oxycodone [From Percocet] Allergy (Intermediate, Verified 02/24/24 13:20) DIZZY, nausea Assessment & Plan Assessment & Plan (1) S/P spinal fusion: Code(s): Z98.1 - Arthrodesis status Category: Surgical Plan Procedure: L4-5 OLIF Denice comes in today for her 2nd postoperative visit. She reports that she has been doing well from her surgery, but still has some tugging/pulling sensations in her low back. She also reports occasional burning feeling in her low back. She denies any radicular symptoms, which is an improvement from preoperative. We reviewed her x-ray imaging in office today, which shows stable placement of surgical construct with no changes from fluoroscopy. No new neurological deficits. The patient is able to ambulate well, rises from seated position without difficulty. Her incision sites are closed, well healing with no signs of drainage. We will follow-up with the patient in 2 months to assess for continued healing as she still has some residual symptoms. Olu Alex MD,PhD [facility] Orders: Orders XR lumbar spine 4V min Today M43.16 - Spondylolisthesis, lumbar region Coding Level of Care Code Global (50754) Diagnoses S/P spinal fusion Z98.1
== END 2024-04-06 14:09 | disposition home or self-care (01) ==
PROVIDERS: PCP Pediatrics; Visit Provider Physician Assistant
DX: Z98.1 Arthrodesis status (principal)
CPT/HCPCS: 99024

== ENCOUNTER 2024-06-14 11:19 | Outpatient (AMB) | payer OTHER, SELFPAY ==
--- NOTE | 2024-06-14 11:42 | A.SPINEOV_ITS ---
Intake Visit Reasons: 2 month follow up Intake Note: Ms. Toro is here for a 2 Month F/u. Correctional Agency Director Required: No Allergies oxycodone [From Percocet] Allergy (Intermediate, Verified 02/24/24 13:20) DIZZY, nausea Assessment & Plan Assessment & Plan (1) S/P spinal fusion: Code(s): Z98.1 - Arthrodesis status Category: Surgical Plan Procedure: L4-5 OLIF Denice comes in today for her 3rd postoperative visit. She reports that the tugging/pulling sensations in her low back have stayed the same. She also has had worsening right-sided burning nerve pain, that is slowly worsened over the last few weeks. It is now to the point where it kept her up almost all night last night. When describing the pain on the right she states that it feels like it is a ?single nerve? and describes it as a well isolated burning sensation. When discussing the burning pain she traces her hand from her right posterior buttocks around her right lateral thigh over the right anterior thigh, terminating before the knee. She states that the bulk of the shooting pains down her bilateral legs has been resolved since the surgery, but she feels these residual symptoms are still plaguing her. I would like to some Denice for a course of physical therapy to see if they are able to work out these residual symptoms. She requested a prescription of gabapentin to help her with sleep for the time being while she engages in physical therapy. The pain that she describes does sound like a nerve pain, and this seems reasonable as she is not sleeping at night which is not sustainable. I would like to see the patient back in the office after she completes physical therapy. Olu Alex MD,PhD [facility] Orders: Orders PT Evaluation and Treatment Today Z98.1 - Arthrodesis status Medications: New gabapentin 300 mg PO BEDTIME 30 caps 0RF nerve pain Coding Level of Care Code Global (40146) Diagnoses S/P spinal fusion Z98.1
== END 2024-06-14 12:09 | disposition home or self-care (01) ==
PROVIDERS: PCP Pediatrics; Visit Provider Physician Assistant
DX: Z98.1 Arthrodesis status (principal)
CPT/HCPCS: 99213

== ENCOUNTER → 2024-06-14 11:19 | Outpatient (BNVA) | payer OTHER, SELFPAY | PROVIDERS: PCP Pediatrics; Visit Provider Physician Assistant | DX: Z47.89 Encounter for other orthopedic aftercare (principal); Z98.1 Arthrodesis status | CPT/HCPCS: 99212 ==

== ENCOUNTER 2024-08-24 10:00 | Outpatient (RCR) | payer OTHER, SELFPAY ==
--- NOTE | 2024-07-07 10:59 | MHC.PT.EP ---
[place] Office [place] Office [place] Office [address] Siddharth Garcia [address] [phone] F: [phone] F: [phone] F: [phone] F: [phone] Physical Therapy Plan of Care Date of Evaluation: 07/07/24 Date of Surgery: 02/02/24 Diagnosis: S/P L4-5 OLIF ON 02/02/24 Assessment: Pt IS 79 YO F REFERRED TO PT FROM [facility] S/P OLIF ON 02/02/24. Pt HAD SPINAL FUSION IN 2020. SHE REPORTS SHE HAD HOME PT AFTER THAT SURGERY, BUT NOT THIS TIME WHICH SHE REPORTS MADE A DIFFERENCE. PRESENTS AT THIS TIME WITH UNSTEADY GT, TIGHT LUMBAR AND THORACIC PARASPINALS, DECREASED CORE STRENGTH. Pt WITH TTP L SI AREA WITH SOME PELVIC ASYMMETRY NOTED (DEXTROSCOLIOS LSPINE NOTED ON XRAY REPORT) WITH LLD. SHOULD BENEFIT FROM PT TO ADDRESS THESE ISSUES Frequency and Duration: The patient will be seen 2X/WK X 6 WKS Short Term Goals: 1. INCREASED AWARENESS BACK CARE 2. I HEP WITH DC EX PLAN Washtub Worker Goals: 1. DECREASED BACK PAIN AT LEAST 50% WITH ADLS 2. Pt TO REPORT IMPROVED STABILITY WITH GT Treatment Plan: Modalities to reduce pain, spasms and effusion. Manual therapy to restore motion and function. Therapeutic exercise to improve strength and flexibility. Neuromuscular re-education for posture and balance. Therapeutic activities to return to functional activities of daily living. Electronically signed by: SHERI SANDERSON PT Please sign and return to therapist. Thank you for your referral.
--- NOTE | 2024-09-14 09:41 | MHC.PT.DC ---
[facility] [place] Office [place] Office [place] Office [address] Siddharth Garcia [address] [phone] F: [phone] F: [phone] F: [phone] F: [phone] Physical Therapy Discharge Report Diagnosis: S/P L4-5 OLIF ON 02/02/24 Date of Surgery: 02/02/24 Date of Evaluation: 07/07/24 Date of Discharge: 09/14/24 Treatments to Date: 7 Cancellations to Date: No Shows to Date: Discharge Status: Insurance Declined Tx Patient Elected to Stop Recommend MD Follow-up Discharge Summary: Pt LAST SEEN ON 08/24/24:PER ASSESSMENT THAT DAY BY ENMA ZURITA PT,DPT Pt was issued seated rows with RTB / blue theraband at hips with good tolerance. WITH PLAN TO CONT PT. Pt THEN CANCELLED FOR INSURANCE PURPOSE THEN SELF DC 08/16/24: Pt expressing reduction in severity of back pain overall, reports positive response to stretches/HEP. 08/12/24: Pt encouraged to initiate slow gradual walking program and pay attention to her body mechanics. Educated re: golfer's lift, pushing vs pulling and maintaining hip hinge squat for position. 07/27/24: Pt expressing restless leg symptoms which are bothering her (encouraged patient to contact her PCP re: this). Pt c/o no change to L/S, no appt scheduled at this time with [facility] (was encouraged to schedule upon completion of PT). 07/22/24: No skin irritation noted with incision site. Pt has small area size of quarter that is altered color from remainder of skin ?birthmark/ discoloration slightly pink hue from rest of area, not red. 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 Pt will be away for 2 weeks out of the state. Will benefit from gentle lumbar/hip stab program . Ambulating with no AD, denies issue with stairs. States went out for first time shopping yesterday was sore but felt good to move Electronically signed by: SHERI SANDERSON PT Please sign and return to therapist. Thank you for your referral.
== END 2024-09-14 09:42 | disposition home or self-care (01) ==
LOC: HO.PTWFD 10:00
PROVIDERS: PCP Pediatrics; Visit Provider Physician Assistant
DX: Z48.89 Encounter for other specified surgical aftercare (principal); M79.2 Neuralgia and neuritis, unspecified; Z98.1 Arthrodesis status
CPT/HCPCS: 97110; 97140; 97162

== ENCOUNTER 2024-08-30 11:22 | Outpatient (AMB) | payer OTHER, SELFPAY ==
--- NOTE | 2024-08-30 11:26 | HO.SPINEOV ---
Intake Visit Reasons: follow up after PT Intake Note: Ms. Toro is here today for a F/u after PT. Floor And Wall Applier Liquid Required: No Allergies oxycodone [From Percocet] Allergy (Intermediate, Verified 02/24/24 13:20) DIZZY, nausea Assessment & Plan Assessment & Plan (1) S/P spinal fusion: Code(s): Z98.1 - Arthrodesis status Category: Surgical Plan Procedure: L4-5 OLIF Denice is a pleasant 79-year-old female who comes in today for a subsequent follow-up visit after being sent for physical therapy after surgery. To recap she was initially evaluated in our office for low back pain and shooting pains into her thighs. During her last visit she reported continued significant pain. Thankfully after a course of physical therapy she is feeling much better. She has been doing her at-home exercises and working with PT to address her pain. Her only complaint today is that she has been having some restless legs for the past few weeks, which she will be going to see her primary care provider to address. No new neurological deficits. The patient's posterior incision sites appear closed and well healed. She ambulates well without any assistive devices. Denice and I discussed her plan going forward. She is agreeable to continuing at-home physical therapy exercises and will follow up with us on an as-needed basis. Olu Alex MD,PhD [facility] Coding Level of Care Code Global (67265) Diagnoses S/P spinal fusion Z98.1
== END 2024-08-30 12:08 | disposition home or self-care (01) ==
PROVIDERS: PCP Pediatrics; Visit Provider Physician Assistant
DX: Z98.1 Arthrodesis status (principal)
CPT/HCPCS: 99213

== ENCOUNTER → 2024-08-30 11:22 | Outpatient (BNVA) | payer OTHER, SELFPAY | PROVIDERS: PCP Pediatrics; Visit Provider Physician Assistant | DX: Z98.1 Arthrodesis status (principal) | CPT/HCPCS: 99212 ==